=== PATIENT | female | born 1985 | race Caucasian/White ===

== ENCOUNTER 2016-12-14 17:40 | Emergency (ER) | payer OTHER ==
[2016-12-14 18:35] LABS: BASOPHIL 0.3 % (0-2); HCT 36.1 % (37.0-47.0); HGB 11.9 g/dl (12.5-16.0); LYMPHOCYTE 43.3 % (15-48); MCH 29.4 pg (25.0-31.0); MCV 89.1 fL (78.0-100.0); MONOCYTE 4.7 % (0-12); MPV 10.5 fL (6.0-9.5); NEUTROPHIL 49.7 % (41-80); PLT 237 K/uL (150-400); RBC 4.05 M/uL (4.20-5.40); RDW 13.8 % (11.5-14.0); WBC 6.2 K/uL (4.0-10.5)
[2016-12-14 18:54] LABS: ALBUMIN 3.9 g/dL (3.5-5.0); BILIRUBIN - TOTAL 0.2 mg/dL (0.1-1.0); CREATININE 0.8 mg/dL (0.5-1.0); POTASSIUM 3.9 mmol/L (3.5-5.1); TOTAL PROTEIN 5.9 g/dL (6.4-8.3)
== END 2016-12-14 20:06 | disposition home or self-care (01) ==
LOC: FER 17:40
PROVIDERS: Nurse Practitioner
DX: N94.6 Dysmenorrhea, unspecified (principal); J45.909 Unspecified asthma, uncomplicated; M41.9 Scoliosis, unspecified; F17.210 Nicotine dependence, cigarettes, uncomplicated; Z87.39 Personal history of other diseases of the musculoskeletal system and connective tissue; Z88.0 Allergy status to penicillin; Z88.5 Allergy status to narcotic agent; Z79.51 Long term (current) use of inhaled steroids; Z79.899 Other long term (current) drug therapy
CPT/HCPCS: 36415; 80053; 85025; J1885; J2405

== ENCOUNTER 2022-01-29 08:02 | Emergency (ER) | payer OTHER ==
[~2022-01-29 08:02] MED LIST: BACTRIM DS TAB1 EACH PO; BC PILL PO; BENTYL10 MG PO; CHANTIX0.5 MG PO; CIPRO500 MG PO; DICLOFENAC SODI75 MG PO; DULERA 100 MCG8.8 GM INH; IBUPROFEN800 MG PO; MACROBID100 MG PO; NEURONTIN300 MG PO; NORCO 5-325 TA1 EACH PO; ONDANSETRON ODT4 MG PO; ONDANSETRON ODT4 MG SL; PREDNISONE 20MG20 MG PO; PROZAC20 MG PO; VENTOLIN HFA IN18 GM INH; VIVITROL380 MG IJ; ZOFRAN4 MG PO
[2022-01-29 08:49] LABS: BASOPHIL 0.6 % (0-2); EOSINOPHIL 1.6 % (0-5); HCT 38.5 % (37.0-47.0); HGB 12.9 g/dl (12.5-16.0); LYMPHOCYTE 25.1 % (15-48); MCH 31.7 pg (25.0-31.0); MCHC 33.5 g/dL (32.0-36.0); MCV 94.6 fL (78.0-100.0); MONOCYTE 3.4 % (0-12); MPV 10.8 fL (6.0-9.5); NEUTROPHIL 68.9 % (41-80); NRBC 0; PLT 203 K/uL (150-400); RBC 4.07 M/uL (4.20-5.40); RDW 11.8 % (11.5-14.0)
[2022-01-29 09:14] LABS: ALBUMIN 3.7 g/dL (3.4-5.0); BILIRUBIN - TOTAL 0.3 mg/dL (0.2-1.0); BUN/CREAT RATIO (CALC) 11.2 RATIO; CREATININE 0.8 mg/dL (0.51-0.95); GLOBULIN (CALCULATION) 3.2 g/dL; POTASSIUM 3.6 mmol/L (3.5-5.1); TOTAL PROTEIN 6.9 g/dL (6.4-8.2)
[2022-01-29 09:30] LABS: CORONAVIRUS 2019 SARS-COV-2 NEGATIVE (NEGATIVE); INFLUENZA A NAA NEGATIVE (NEGATIVE)
[2022-01-29] MEDS ORDERED: VIBRAMYCIN100 MG PO (09:41)
== END 2022-01-29 09:54 | disposition home or self-care (01) ==
LOC: FER 08:02
PROVIDERS: Internal Medicine
DX: J20.9 Acute bronchitis, unspecified (principal); J45.909 Unspecified asthma, uncomplicated; B34.9 Viral infection, unspecified; F17.210 Nicotine dependence, cigarettes, uncomplicated; Z88.0 Allergy status to penicillin; Z88.2 Allergy status to sulfonamides; Z20.822 Contact with and (suspected) exposure to COVID-19; Z28.311 Partially vaccinated for COVID-19
CPT/HCPCS: 36415; 71045; 80053; 84145; 85025; 94664; J1100; U0002